=== PATIENT | male | born 1975 | race Caucasian/White ===

== ENCOUNTER 2018-07-09 21:51 | Emergency (ER) | payer MEDICAID ==
[~2018-07-09] VITALS: Ht 182.9 cm; Wt 102.3 kg
[2018-07-09 22:05] VITALS: Ht 182.9 cm; Wt 102.3 kg
[2018-07-09] MEDS ORDERED: ROBAXIN500 MG PO (22:50)
[2018-07-09] MEDS ORDERED: PREDNISONE20 MG PO (22:50)
[2018-07-09 23:39] VITALS: BP 143/80
== END 2018-07-09 23:39 | disposition home or self-care (01) ==
LOC: D.ER 21:51
DX: S16.1XXA Strain of muscle, fascia and tendon at neck level, initial encounter (principal); X58.XXXA Exposure to other specified factors, initial encounter; Y93.89 Activity, other specified; Y92.019 Unspecified place in single-family (private) house as the place of occurrence of the external cause; F17.200 Nicotine dependence, unspecified, uncomplicated

== ENCOUNTER 2019-09-15 23:15 | Emergency (ER) | payer OTHER ==
[~2019-09-15] VITALS: Ht 182.9 cm; Wt 100.0 kg
[~2019-09-15 23:15] MED LIST: PREDNISONE20 MG PO; ROBAXIN500 MG PO
[2019-09-15 23:22] VITALS: Ht 182.9 cm; Wt 100.0 kg
[2019-09-16] MEDS ORDERED: CLEOCIN HCL300 MG PO (00:22)
[2019-09-16 00:40] VITALS: BP 140/88
== END 2019-09-16 00:40 | disposition home or self-care (01) ==
LOC: D.ER 23:15
DX: L02.413 Cutaneous abscess of right upper limb (principal); M25.532 Pain in left wrist

== ENCOUNTER → 2019-09-22 08:12 | Outpatient (CLI) | payer OTHER ==
[2019-09-15 23:22] VITALS: BMI 29.9
[~2019-09-22 08:12] MED LIST changes: +CLEOCIN HCL300 MG PO
== END | disposition home or self-care (01) ==
LOC: D.CT 08:12
PROVIDERS: ATTEND Nurse Practitioner Family
DX: S62.015A Nondisplaced fracture of distal pole of navicular [scaphoid] bone of left wrist, initial encounter for closed fracture (principal)

== ENCOUNTER 2019-11-29 21:58 | Emergency (ER) | payer MEDICAID ==
[~2019-11-29] VITALS: Ht 182.9 cm; Wt 105.7 kg
[2019-11-29 22:02] VITALS: Ht 182.9 cm; Wt 105.7 kg
[2019-11-29 22:21] LABS: BASOPHILS 0.5 % (0-2); EOSINOPHILS 2.5 % (0-7); HEMATOCRIT 46.5 % (42.0-54.0); HEMOGLOBIN 16.2 g/dL (13.5-17.5); IMMATURE GRANULOCYTES 0.3 % (0-5); LYMPHOCYTES 36.4 % (15-50); MCH 32.1 pg (26.0-34.0); MCHC 34.8 g/dL (31.0-37.0); MCV 92.1 fL (80.0-100.0); MONOCYTES 7.8 % (2-11); NEUTROPHILS 52.5 % (40-80); PLATELET COUNT 295 10x3/uL (130-400); RBC 5.05 10x6/uL (4.20-6.10); RDW 14.2 % (11.5-14.5); WBC 11.9 10x3/uL (4.8-10.8)
[2019-11-29 22:30] LABS: APTT 28.8 SECONDS (22.8-39.4); CALC OSMOLALITY 277 mosm/kg (275-300); CALCIUM 8.2 mg/dL (8.5-10.1); CARBON DIOXIDE 27.3 mmol/L (21.0-32.0); CHLORIDE - SERUM 105 mmol/L (98-107); GLUCOSE 114 mg/dL (74-106); POTASSIUM - SERUM 4.9 mmol/L (3.5-5.1); SODIUM 140 mmol/L (136-145); UREA NITROGEN 8 mg/dL (7-18); eGFR NON AFRICAN AMERICAN 85 mL/min (90-120)
[2019-11-29 22:36] LABS: INR 0.84 (0.85-1.17); PROTIME 11.5 SECONDS (11.6-15.0)
[2019-11-29 22:47] LABS: ALBUMIN 3.1 g/dL (3.4-5.0); ALKALINE PHOSPHATASE 102 U/L (30-120); ALT (SGPT) 40 U/L (10-68); CKMB 0.4 U/L (0.0-3.6); CREATINE KINASE 163 UL (21-232); PRO BNP 13 pg/mL (0-125); PROTEIN - SERUM 6.7 g/dL (6.4-8.2)
[2019-11-29 22:48] LABS: TROPONIN-I < 0.017 ng/mL (0.000-0.060)
[2019-11-29 23:21] VITALS: BP 125/68
== END 2019-11-29 23:21 | disposition home or self-care (01) ==
LOC: D.ER 21:58
PROVIDERS: Family Medicine
DX: I10 Essential (primary) hypertension (principal); Z72.0 Tobacco use; Z86.73 Personal history of transient ischemic attack (TIA), and cerebral infarction without residual deficits

== ENCOUNTER → 2020-02-04 12:22 | Outpatient (CLI) | payer MEDICAID ==
[2019-11-29 22:02] VITALS: BMI 33.1
[~2020-02-04 12:22] MED LIST changes: +BENICAR5 MG PO; +BUPROPION HCL75 MG PO; +ULTRAM50 MG PO
== END | disposition home or self-care (01) ==
LOC: D.RAD 12:22
PROVIDERS: ATTEND Nurse Practitioner
DX: S62.92XA Unspecified fracture of left hand, initial encounter for closed fracture (principal)